=== PATIENT | male | born 2000 | race African-American/Black ===

== ENCOUNTER 2019-12-19 18:30 | Emergency (ER) | payer SELFPAY ==
[~2019-12-19] VITALS: Ht 185.4 cm; Wt 81.6 kg
[2019-12-19 18:45] VITALS: BP 118/84
[2019-12-19 23:46] LABS: Urine Bacteria NONE SEEN /hpf (None Seen); Urine Blood Negative /uL (Negative); Urine Mucus FEW (None Seen); Urine Specific Gravity 1.033 (1.001-1.035); Urine WBC 2 /hpf (0 - 3)
[2019-12-19 23:54] LABS: Amphetamine Screen, Urine NEGATIVE (NEGATIVE); Barbiturate Scree,Urine NEGATIVE (NEGATIVE); Benzodiazephine Screen, Urine NEGATIVE (NEGATIVE); Cannabinoid Screen, Urine NEGATIVE (NEGATIVE); Cocaine Screen, Urine NEGATIVE (NEGATIVE); Opiate Scree,Urine NEGATIVE (NEGATIVE); Phencyclidine Screen, Urine NEGATIVE (NEGATIVE)
== END 2019-12-19 23:49 | disposition home or self-care (01) ==
LOC: EDBD 18:30 → ER 18:30
DX: R44.0 Auditory hallucinations (principal); R45.851 Suicidal ideations; Z91.19 Patient's noncompliance with other medical treatment and regimen
CPT/HCPCS: 80307; 81001; 93005

== ENCOUNTER 2019-12-20 10:48 | Emergency (ER) | payer MEDICAID ==
[~2019-12-20] VITALS: Ht 188 cm; Wt 86.2 kg
[2019-12-20] MEDS ORDERED: ALPRAZolam 0.5 MG TAB PO ONE (11:45)
[2019-12-20] MEDS ORDERED: OLANZapine 5 MG TAB PO ONE (11:45)
[2019-12-20 11:52] LABS: Urine Bacteria NONE SEEN /hpf (None Seen); Urine Blood Negative /uL (Negative); Urine Mucus FEW (None Seen); Urine Specific Gravity 1.029 (1.001-1.035); Urine WBC 2 /hpf (0 - 3)
[2019-12-20 12:06] LABS: Amphetamine Screen, Urine NEGATIVE (NEGATIVE); Barbiturate Scree,Urine NEGATIVE (NEGATIVE); Benzodiazephine Screen, Urine NEGATIVE (NEGATIVE); Cannabinoid Screen, Urine NEGATIVE (NEGATIVE); Cocaine Screen, Urine NEGATIVE (NEGATIVE); Opiate Scree,Urine NEGATIVE (NEGATIVE); Phencyclidine Screen, Urine NEGATIVE (NEGATIVE)
[2019-12-20 13:01] LABS: Basophils # (auto) 0.1 10 ^3/uL (0-0.2); Basophils % (auto) 1.1 % (0.0-2.0); Eosinophils # (auto) 0.1 10 ^3/uL (0-0.8); Eosinophils % (auto) 0.8 % (0.0-7.0); Hematocrit 41.6 % (41.0-53.0); Hemoglobin 13.8 g/dL (13.5-17.5); Lymphocytes # (auto) 1.5 10 ^3/uL (0.4-5.4); Lymphocytes % (auto) 19.5 % (10.0-50.0); Mean Corpuscular Hemoglobin 28.3 pg (28.0-32.0); Mean Corpuscular Hgb Conc. 33.1 g/dL (32.0-36.0); Mean Corpuscular Volume 85.5 fL (80.0-100.0); Monocytes # (auto) 0.8 10 ^3/uL (0-1.3); Monocytes % (auto) 10.3 % (0.0-12.0); Neutrophils # (auto) 5.2 10 ^3/uL (1.6-8.6); Neutrophils % (auto) 68.3 % (37.0-80.0); Nucleated Red Blood Cells % 0.1 %; Platelet Count (auto) 349 10^3/uL (140-450); Red Blood Cells 4.86 10^6/uL (4.5-5.90); Red Cell Distribution Width 13.6 % (11.8-14.3); White Blood Cell 7.6 10^3/uL (4.4-10.8)
[2019-12-20 13:21] LABS: Albumin 4.1 g/dL (3.4-5.0); BUN/Creatinine Ratio 12.7; Calcium 9.4 mg/dL (8.5-10.1); Magnesium 2.6 mg/dL (1.6-2.6); Potassium 3.8 mmol/L (3.5-5.1)
[2019-12-20 13:24] LABS: Bilirubin, Total 0.4 mg/dL (0.2-1.0); Total Protein 9.2 g/dL (6.4-8.2)
[2019-12-21] MEDS ORDERED: OLANZapine 5 MG TAB PO ONE (08:45)
[2019-12-21] MEDS ORDERED: ALPRAZolam 0.5 MG TAB PO PRN (08:45)
[2019-12-22 08:00] VITALS: BP 120/77
[2019-12-22] MEDS ORDERED: ALPRAZolam 0.5 MG TAB PO SCH (12:00)
[2019-12-22] MEDS ORDERED: OLANZapine 5 MG TAB PO ONE (12:15)
[2019-12-23] MEDS ORDERED: OLANZapine 5 MG TAB PO SCH (10:00)
== END 2019-12-22 14:32 | disposition home or self-care (01) ==
LOC: ER 10:48 → EDBD 10:48 → ER 12-22 14:32
DX: F20.9 Schizophrenia, unspecified (principal); R45.850 Homicidal ideations; Z20.828 Contact with and (suspected) exposure to other viral communicable diseases
CPT/HCPCS: 36415; 71046; 80053; 80307; 81001; 83735; 84443; 85025; 99285; C9803; U0003